=== PATIENT | female | born 2000 | race Caucasian/White ===

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

== ENCOUNTER 2021-08-28 16:19 | Emergency (ER) | payer BC ==
[2021-08-28] MEDS ORDERED: Sulfamethoxazole/Trimethoprim 800-160 MG Tab PO ONE (16:48)
== END 2021-08-28 17:15 | disposition home or self-care (01) ==
LOC: MW.ED 16:19
DX: N30.01 Acute cystitis with hematuria (principal); Z79.899 Other long term (current) drug therapy
CPT/HCPCS: 81001; 81025; 99283; A9270

== ENCOUNTER 2023-01-20 17:03 | Emergency (ER) | payer BC | END 2023-01-20 19:06 | disposition home or self-care (01) | LOC: MW.ED 17:03 | DX: J03.90 Acute tonsillitis, unspecified (principal); J45.909 Unspecified asthma, uncomplicated | CPT/HCPCS: 87651-QW; 99283 ==

== ENCOUNTER 2023-04-14 14:19 | Emergency (ER) | payer BC ==
[2023-04-14 15:19] LABS: APPEARANCE,URINE CLEAR; GLUCOSE,URINE 250 mg/dL (NEGATIVE); KETONES,URINE TRACE mg/dL (NEGATIVE); LEUKOCYTE ESTERASE,URINE SMALL (NEGATIVE); NITRITE,URINE POSITIVE (NEGATIVE); OCCULT BLOOD,URINE SMALL (NEGATIVE); PROTEIN,URINE 100 mg/dL (NEGATIVE); UROBILINOGEN,URINE >=8.0 EU/dL (<2.0)
[2023-04-14 15:20] LABS: BILIRUBIN,URINE SMALL (NEGATIVE); COLOR,URINE ORANGE
[2023-04-14 15:30] LABS: BACTERIA,URINE FEW (NEGATIVE); EPITHELIAL CELLS,URINE FEW (NONE-FEW); MUCUS,URINE LIGHT (NONE-MOD)
[2023-04-14] MEDS ORDERED: Sulfamethoxazole/Trimethoprim 800-160 MG Tab PO ONE (15:42)
== END 2023-04-14 16:06 | disposition home or self-care (01) ==
LOC: MW.ED 14:19
DX: N39.0 Urinary tract infection, site not specified (principal); J45.909 Unspecified asthma, uncomplicated; Z79.899 Other long term (current) drug therapy
CPT/HCPCS: 81001; 87086; 99283; A9270